=== PATIENT | female | born 2000 | race Two or more races ===

== ENCOUNTER 2022-07-03 13:00 | Emergency (ER) | payer MEDICAID ==
[~2022-07-03] VITALS: Ht 149.9 cm; Wt 82.7 kg
[2022-07-03 13:07] VITALS: BP 143/94
[2022-07-03 15:43] LABS: Urine Bacteria FEW /hpf (None Seen); Urine Blood Negative /uL (Negative); Urine Specific Gravity 1.008 (1.001-1.035); Urine WBC 1 /hpf (0 - 5)
== END 2022-07-03 16:14 | disposition home or self-care (01) ==
LOC: ER 13:01
DX: R10.2 Pelvic and perineal pain (principal); Z88.0 Allergy status to penicillin; Z88.1 Allergy status to other antibiotic agents; Z90.89 Acquired absence of other organs
CPT/HCPCS: 81001; 81025